=== PATIENT | male | born 1955 | race Caucasian/White ===

== ENCOUNTER 2019-03-21 23:37 | Emergency (ER) | payer MEDICARE ==
[~2019-03-21] VITALS: Ht 180.3 cm; Wt 85.9 kg
[2019-03-22 00:07] LABS: BASOPHILS # (AUTO) 0.1 X10'3 (0-0.2); EOSINOPHILS # (AUTO) 0.1 X10'3 (0-0.9); MEAN CORPUSCULAR VOLUME 97.3 FL (78-98); MONOCYTES # (AUTO) 1.3 X10'3 (0-0.9)
[2019-03-22 00:08] LABS: BASOPHILS % (AUTO) 0.8 % (0-1); EOSINOPHILS % (AUTO) 0.7 % (0-6); HEMATOCRIT 49.1 % (42.0-52.0); LYMPHOCYTES # (AUTO) 2.5 X10'3 (1.1-4.8); LYMPHOCYTES % (AUTO) 17.6 % (21-51); MEAN CORPUSCULAR HEMOGLOBIN 33.7 PG (27.0-31.0); MEAN CORPUSCULAR HGB CONC 34.6 g/dL (33.0-36.5); MEAN PLATELET VOLUME 7.7 FL (7.4-10.4); MONOCYTES % (AUTO) 9.4 % (2-12); NEUTROPHILS # (AUTO) 10.1 X10'3 (1.8-7.7); NEUTROPHILS % (AUTO) 71.5 % (42-75); PLATELET COUNT 248 X10'3 (140-440); RED BLOOD COUNT 5.05 X10'6 (4.70-6.10); RED CELL DISTRIBUTION WIDTH 14.2 % (11.5-14.5); WHITE BLOOD COUNT 14.2 X10'3 (4.5-11.0)
[2019-03-22 00:21] LABS: ALANINE AMINOTRANSFERASE 94 U/L (12-78); ALBUMIN 4.1 G/DL (3.4-5.0); ALBUMIN/GLOBULIN RATIO 1.2 (1.1-1.5); ALKALINE PHOSPHATASE 71 IU/L (46-116); ANION GAP 14 (8-16); ASPARTATE AMINO TRANSFERASE 75 U/L (10-37); BILIRUBIN,TOTAL 1.2 MG/DL (0.1-1.0); BLOOD UREA NITROGEN 9 MG/DL (7-18); BUN/CREATININE RATIO 9.4 (5.4-32.0); CALCIUM 10.5 MG/DL (8.5-10.1); CHLORIDE 99 MMOL/L (99-107); CREATININE 0.96 MG/DL (0.60-1.10); GLUCOSE 115 MG/DL (70-104); LIPASE 115 U/L (73-393); POTASSIUM 3.2 MMOL/L (3.5-5.1); SODIUM 138 MMOL/L (135-145); TOTAL CARBON DIOXIDE 25.2 MMOL/L (24-32); TOTAL PROTEIN 7.6 G/DL (6.4-8.2); eGFR 79 ML/MIN
[2019-03-22] MEDS ORDERED: ondansetron/PF 4mg/2ml inj IV ONE (00:50)
[2019-03-22] MEDS ORDERED: LORazepam 2 mg/ml vial IV ONE (00:55)
[2019-03-22] MEDS ORDERED: famotidine/PF 10 mg/ml inj IV ONE (00:55)
[2019-03-22] MEDS ORDERED: pantoprazole 40 MG vial IV ONE (00:55)
[2019-03-22] MEDS ORDERED: glucagon, human recombinant 1mg kit IV ONE (00:55)
[2019-03-22 01:15] LABS: TROPONIN I < 0.04 NG/ML (0.0-0.05)
[2019-03-22 01:46] LABS: CLARITY,URINE CLEAR (Clear); COLOR,URINE YELLOW (Yellow); GLUCOSE, URINE NEGATIVE (Neg); KETONES,URINE 15 mg/dl (Neg); LEUKOCYTE ESTERASE ,URINE NEGATIVE (Neg); NITRITES, URINE NEGATIVE (Neg); OCCULT BLOOD,URINE NEGATIVE (Neg); PH,URINE 7.5 (4.8-8.0); PROTEIN,URINE NEGATIVE (Neg); UROBILINOGEN,URINE 0.2 E.U/dL (0.2-1.0)
[2019-03-22 01:47] LABS: UA COLLECTION TYPE CLN CATCH MIDSTREAM
[2019-03-22 02:31] VITALS: BP 129/86
== END 2019-03-22 03:35 | disposition home or self-care (01) ==
LOC: ER 23:38
DX: K29.00 Acute gastritis without bleeding (principal); E87.6 Hypokalemia; Z88.8 Allergy status to other drugs, medicaments and biological substances
CPT/HCPCS: 36415; 71045; 80053; 81003; 83690; 84484; 85025; 93005; 96374; 96375; 99284; C9113; J1610; J2060; J2405; J3490

== ENCOUNTER 2021-12-30 02:17 | Emergency (ER) | payer MEDICARE ==
[~2021-12-30] VITALS: Ht 162.6 cm; Wt 100.0 kg
[2021-12-30 02:33] VITALS: BP 142/93
== END 2021-12-30 02:45 ==
LOC: ER 02:18
DX: S80.211A Abrasion, right knee, initial encounter (principal); S60.811A Abrasion of right wrist, initial encounter; R00.2 Palpitations; R42 Dizziness and giddiness; Z02.89 Encounter for other administrative examinations; X58.XXXA Exposure to other specified factors, initial encounter; Y93.89 Activity, other specified; Y92.89 Other specified places as the place of occurrence of the external cause; Y99.8 Other external cause status
CPT/HCPCS: 93005; 99283